=== PATIENT | female | born 2000 | race Caucasian/White ===

== ENCOUNTER 2025-08-18 10:33 | Emergency (ER) | payer BC ==
[~2025-08-18] VITALS: Ht 172.7 cm; Wt 61.2 kg
[2025-08-18 10:54] VITALS: BP 103/63; TEMP 98.3
[2025-08-18] MEDS ORDERED: ACYC-108 PO (12:05)
[2025-08-18] MEDS ORDERED: DOXY-326 PO (12:05)
[2025-08-18] MEDS ORDERED: MOXI400T31 PO (12:05)
[2025-08-18 12:11] VITALS: O2SAT 99
== END 2025-08-18 12:11 | disposition home or self-care (01) ==
LOC: ER 10:56
DX: B00.9 Herpesviral infection, unspecified (principal); B96.0 Mycoplasma pneumoniae [M. pneumoniae] as the cause of diseases classified elsewhere